=== PATIENT | female | born 1940 | race Caucasian/White ===

== ENCOUNTER 2018-06-02 10:15 | Inpatient (IN) ==
[2018-06-02] MEDS ORDERED: CEFTAROLINE 600 MG in SODIUM CHLORIDE 0.9% 100 ML IV STA (10:36)
[2018-06-02] MEDS ORDERED: SODIUM CHLORIDE 0.9% 1,000 ML IV STA (10:36)
[2018-06-02] MEDS ORDERED: ONDANSETRON 4 MG/2 ML VIAL IV STA (10:37)
[2018-06-02] MEDS ORDERED: fentaNYL 100 MCG/2 ML VIAL IV STA (10:37)
[2018-06-02 10:53] LABS: Basophils % 0.4 % (0.0-0.8); Hematocrit 44.2 VOL% (35.7-47.0); Hemoglobin 14.5 GM/DL (12.0-16.0); Immature Granulocytes % 0.5 %; Immature Granulocytes Absolute 0.05 #; Lymphocytes # 1.6 10*3/uL (1.4-4.0); Lymphocytes % 14.9 % (21.3-54.2); Mean Corpuscular HGB Conc 32.8 GM/DL (32-36); Mean Corpuscular Hemoglobin 31 PG (27-34); Mean Corpuscular Volume 95.1 FL (87-102); Mean Platelet Volume 10.1 FL (9.6-12.0); Monocytes # 0.8 10*3/uL (0.11-0.8); Monocytes % 7.4 % (1.7-12.7); Neutrophils # 8.4 10*3/uL (1.4-7.4); Neutrophils % 76.8 % (38.7-73.9); Platelet Count 172 T/CUMM (130-400); Red Blood Count 4.65 MC/CUMM (3.8-5.5); Red Cell Distribution Width 13.3 % (9.3-17.3); White Blood Count 10.9 T/CUMM (4-12)
[2018-06-02 11:00] LABS: INR 1.1; PT Patient Result 11.8 SECS; Partial Thromboplastin Time 23.3 SECS (0-40)
[2018-06-02] MEDS ORDERED: ALBUTEROL 2.5 MG/3 ML NEB RESP TX STA (11:04)
[2018-06-02 11:17] LABS: Hypochromasia 1+; Platelet Estimate Adequate
[2018-06-02 11:20] LABS: Albumin 2.5 G/DL (3.4-5.0); Calcium 8.2 MG/DL (8.5-10.1); Osmolality,Calculated 273.8 MOS/KG (273-304); Total Protein 7.3 G/DL (6.4-8.3)
[2018-06-02] MEDS ORDERED: POTASSIUM CHLORIDE 20 MEQ TABLET PO STA (11:39)
[2018-06-02] MEDS ORDERED: ONDANSETRON 4 MG/2 ML VIAL IV PRN (13:36)
[2018-06-02] MEDS ORDERED: ZALEPLON 5 MG CAPSULE PO PRN (13:36)
[2018-06-02] MEDS ORDERED: ACETAMINOPHEN 325 MG TABLET PO PRN (13:36)
[2018-06-02] MEDS ORDERED: DOCUSATE SODIUM 100 MG CAPSULE PO PRN (13:36)
[2018-06-02] MEDS ORDERED: ALBUTEROL/IPRATROPIUM 3 ML NEB RESP TX PRN (13:40)
[2018-06-02] MEDS ORDERED: clonazePAM 0.5 MG TABLET PO PRN (13:40)
[2018-06-02] MEDS ORDERED: NAPROXEN EC 375 MG TABLET PO PRN (13:40)
[2018-06-02] MEDS: traMADol 50 MG TABLET PO PRN (18:44)
[2018-06-02] MEDS: FLUTICASONE/SALMETEROL 250-50 DISKUS 14 DOSE INH SCH (21:14)
[2018-06-02] MEDS: PANTOPRAZOLE 40 MG TABLET PO SCH (21:14)
[2018-06-02] MEDS: CEFTAROLINE 600 MG in SODIUM CHLORIDE 0.9% 100 ML IV SCH (21:14)
[2018-06-02] MEDS: ENOXAPARIN 40 MG/0.4 ML SYRINGE SUBCUT SCH (21:14)
[2018-06-02] MEDS: MONTELUKAST 10 MG TABLET PO SCH (21:14)
[2018-06-02] MEDS: SIMVASTATIN 40 MG TABLET PO SCH (21:14)
[2018-06-02] MEDS: PREGABALIN 75 MG CAPSULE PO SCH (21:14)
[2018-06-03 00:08] LABS: Apearance,Urine Slightly Hazy (Clear); Bacteria,Urine Occasional /HPF (Few); Bilirubin,Urine Negative (Negative); Blood, Urine Negative (Negative); Glucose,Urine (UA) Negative (Negative); Ketones,Urine 20 mg/dL (Negative); Mucus,Urine Few /LPF (Occasional); Nitrite,Urine Negative (Negative); Protein,Urine Negative; RBC,Urine 1 /HPF (0-4); Squamous Epithelial Cell,Urine Occasional /HPF (0-10); Urine Color Amber (Yellow); Urine Specific Gravity 1.026 (1.001-1.035); WBC,Urine 7 /HPF (0-6)
[2018-06-03 05:13] LABS: Basophils % 0.2 % (0.0-0.8); Eosinophils % 0.4 % (0.00-10.9); Hematocrit 37.5 VOL% (35.7-47.0); Hemoglobin 11.8 GM/DL (12.0-16.0); Immature Granulocytes % 0.5 %; Immature Granulocytes Absolute 0.04 #; Lymphocytes # 1.7 10*3/uL (1.4-4.0); Lymphocytes % 20.6 % (21.3-54.2); Mean Corpuscular HGB Conc 31.5 GM/DL (32-36); Mean Corpuscular Hemoglobin 31 PG (27-34); Mean Corpuscular Volume 96.9 FL (87-102); Mean Platelet Volume 10.9 FL (9.6-12.0); Monocytes # 0.7 10*3/uL (0.11-0.8); Monocytes % 8.7 % (1.7-12.7); Neutrophils # 5.6 10*3/uL (1.4-7.4); Neutrophils % 69.6 % (38.7-73.9); Platelet Count 168 T/CUMM (130-400); Red Blood Count 3.87 MC/CUMM (3.8-5.5); Red Cell Distribution Width 13.3 % (9.3-17.3); White Blood Count 8.1 T/CUMM (4-12)
[2018-06-03 05:28] LABS: Calcium 7.5 MG/DL (8.5-10.1); Potassium 3.6 MMOL/L (3.5-5.1)
[2018-06-03] MEDS: IPRATROPIUM 500 MCG/2.5 ML NEB RESP TX SCH ×4 (07:07→19:07)
[2018-06-03] MEDS: RALOXIFENE 60 MG TABLET PO SCH (09:01)
[2018-06-03] MEDS: hydroCHLOROthiazide 12.5 MG CAPSULE PO SCH (09:01)
[2018-06-03] MEDS: CEFTAROLINE 600 MG in SODIUM CHLORIDE 0.9% 100 ML IV SCH ×2 (09:01→21:29)
[2018-06-03] MEDS: CLOPIDOGREL 75 MG TABLET PO SCH (09:01)
[2018-06-03] MEDS: ASPIRIN EC 81 MG TABLET PO SCH (09:01)
[2018-06-03] MEDS: PREGABALIN 75 MG CAPSULE PO SCH ×2 (09:01→21:28)
[2018-06-03] MEDS: FLUTICASONE/SALMETEROL 250-50 DISKUS 14 DOSE INH SCH ×2 (09:02→21:28)
[2018-06-03] MEDS: PANTOPRAZOLE 40 MG TABLET PO SCH ×2 (09:59→21:28)
[2018-06-03] MEDS ORDERED: MAGNESIUM SULF RIDER 4 GM in PREMIX 1 EACH IV PRN (10:33)
[2018-06-03] MEDS ORDERED: MAGNESIUM SULF RIDER 2 GM in PREMIX 1 EACH IV PRN (10:33)
[2018-06-03] MEDS ORDERED: LANOLIN 50% CREAM 0.3 OZ TUBE TOP PRN (10:38)
[2018-06-03] MEDS: MONTELUKAST 10 MG TABLET PO SCH (21:27)
[2018-06-03] MEDS: SIMVASTATIN 40 MG TABLET PO SCH (21:28)
[2018-06-03] MEDS: traMADol 50 MG TABLET PO PRN (21:28)
[2018-06-03] MEDS: ENOXAPARIN 40 MG/0.4 ML SYRINGE SUBCUT SCH (21:28)
[2018-06-04 06:19] LABS: Calcium 7.9 MG/DL (8.5-10.1); Osmolality,Calculated 274.7 MOS/KG (273-304)
[2018-06-04 08:08] LABS: Basophils % 0.4 % (0.0-0.8); Eosinophils # 0.1 10*3/uL (0.0-0.87); Eosinophils % 1.3 % (0.00-10.9); Hematocrit 39.1 VOL% (35.7-47.0); Hemoglobin 12.4 GM/DL (12.0-16.0); Immature Granulocytes % 0.6 %; Immature Granulocytes Absolute 0.04 #; Lymphocytes # 1.1 10*3/uL (1.4-4.0); Lymphocytes % 16.2 % (21.3-54.2); Mean Corpuscular HGB Conc 31.7 GM/DL (32-36); Mean Corpuscular Hemoglobin 31 PG (27-34); Mean Corpuscular Volume 96.1 FL (87-102); Mean Platelet Volume 9.9 FL (9.6-12.0); Monocytes # 0.4 10*3/uL (0.11-0.8); Monocytes % 6.3 % (1.7-12.7); Neutrophils # 5.1 10*3/uL (1.4-7.4); Neutrophils % 75.2 % (38.7-73.9); Platelet Count 189 T/CUMM (130-400); Red Blood Count 4.07 MC/CUMM (3.8-5.5); Red Cell Distribution Width 13.1 % (9.3-17.3); White Blood Count 6.8 T/CUMM (4-12)
[2018-06-04] MEDS: FLUTICASONE/SALMETEROL 250-50 DISKUS 14 DOSE INH SCH (08:25)
[2018-06-04] MEDS: ASPIRIN EC 81 MG TABLET PO SCH (08:25)
[2018-06-04] MEDS: RALOXIFENE 60 MG TABLET PO SCH (08:25)
[2018-06-04] MEDS ORDERED: MAGNESIUM SULF RIDER 2 GM in PREMIX 1 EACH IV ONE (08:25)
[2018-06-04] MEDS: CLOPIDOGREL 75 MG TABLET PO SCH (08:25)
[2018-06-04] MEDS: PANTOPRAZOLE 40 MG TABLET PO SCH (08:25)
[2018-06-04] MEDS: PREGABALIN 75 MG CAPSULE PO SCH (08:25)
[2018-06-04] MEDS: hydroCHLOROthiazide 12.5 MG CAPSULE PO SCH (08:25)
[2018-06-04] MEDS ORDERED: POTASSIUM CHLORIDE 20 MEQ/15 ML UDCUP PO ONE (08:26)
[2018-06-04] MEDS: IPRATROPIUM 500 MCG/2.5 ML NEB RESP TX SCH (08:47)
[2018-06-04] MEDS: CEFTAROLINE 600 MG in SODIUM CHLORIDE 0.9% 100 ML IV SCH (10:00)
[2018-06-04 11:02] VITALS: BP 116/70
== END 2018-06-04 12:00 | disposition home or self-care (01) | DRG 603 ==
LOC: EDUNIT# → N.ED 10:15 → N.EDINP 12:03 → SUATTDRO 12:03 → N.3E 16:58
PROVIDERS: ADMIT Hospitalist; ATTEND Internal Medicine

== ENCOUNTER 2018-06-09 17:35 | Observation (INO) ==
[2018-06-09 18:54] LABS: Basophils % 0.6 % (0.0-0.8); Eosinophils # 0.1 10*3/uL (0.0-0.87); Eosinophils % 1.3 % (0.00-10.9); Hematocrit 40.1 VOL% (35.7-47.0); Hemoglobin 12.9 GM/DL (12.0-16.0); Immature Granulocytes % 0.7 %; Immature Granulocytes Absolute 0.05 #; Lymphocytes # 2.1 10*3/uL (1.4-4.0); Lymphocytes % 29.3 % (21.3-54.2); Mean Corpuscular HGB Conc 32.2 GM/DL (32-36); Mean Corpuscular Hemoglobin 31 PG (27-34); Mean Corpuscular Volume 95.2 FL (87-102); Mean Platelet Volume 9.8 FL (9.6-12.0); Monocytes # 0.5 10*3/uL (0.11-0.8); Monocytes % 6.7 % (1.7-12.7); Neutrophils # 4.3 10*3/uL (1.4-7.4); Neutrophils % 61.4 % (38.7-73.9); Platelet Count 380 T/CUMM (130-400); Red Blood Count 4.21 MC/CUMM (3.8-5.5); Red Cell Distribution Width 13.2 % (9.3-17.3)
[2018-06-09 19:07] LABS: Alanine Aminotransferase 17 U/L (13-56); Albumin 2.4 G/DL (3.4-5.0); Alkaline Phosphatase 84 U/L (45-117); Aspartate Amino Transferase 17 U/L (0-37); Bilirubin,Total < 0.39 MG/DL (0.2-1.0); Blood Urea Nitrogen 16 MG/DL (7-18); Calcium 8.3 MG/DL (8.5-10.1); Glucose 134 MG/DL (74-106); Osmolality,Calculated 279.5 MOS/KG (273-304); Potassium 3.2 MMOL/L (3.5-5.1); Sodium 139 MMOL/L (136-145); Total Protein 6.8 G/DL (6.4-8.3)
[2018-06-09 19:11] LABS: Apearance,Urine CLEAR (Clear); Bilirubin,Urine Negative (Negative); Blood, Urine Negative (Negative); Glucose,Urine (UA) Negative (Negative); Ketones,Urine Negative (Negative); Nitrite,Urine Negative (Negative); Protein,Urine Negative; RBC,Urine <1 /HPF (0-4); Urine Color Yellow (Yellow); Urine Specific Gravity 1.019 (1.001-1.035); Urine Urobilinogen < 2.0 EU/DL (0.2-1.0); WBC,Urine 3 /HPF (0-6)
[2018-06-09 19:12] LABS: Hyaline Casts,Urine 3 /LPF (0-3); Mucus,Urine Occasional /LPF (Occasional); Squamous Epithelial Cell,Urine Occasional /HPF (0-10)
[2018-06-09] MEDS ORDERED: DOCUSATE SODIUM 100 MG CAPSULE PO PRN (20:38)
[2018-06-09] MEDS ORDERED: ACETAMINOPHEN 325 MG TABLET PO PRN (20:38)
[2018-06-09] MEDS ORDERED: ONDANSETRON 4 MG/2 ML VIAL IV PRN (20:38)
[2018-06-09] MEDS ORDERED: NAPROXEN EC 375 MG TABLET PO PRN (20:41)
[2018-06-09] MEDS ORDERED: traMADol 50 MG TABLET PO PRN (20:41)
[2018-06-09] MEDS ORDERED: MECLIZINE 25 MG TABLET PO PRN (20:41)
[2018-06-09] MEDS ORDERED: clonazePAM 0.5 MG TABLET PO PRN (20:41)
[2018-06-09] MEDS ORDERED: SIMVASTATIN 40 MG TABLET PO SCH (21:00)
[2018-06-09] MEDS ORDERED: ENOXAPARIN 40 MG/0.4 ML SYRINGE SUBCUT SCH (21:00)
[2018-06-09] MEDS ORDERED: MONTELUKAST 10 MG TABLET PO SCH (21:00)
[2018-06-09] MEDS ORDERED: NAPROXEN 250 MG TABLET PO PRN (22:30)
[2018-06-09] MEDS: PANTOPRAZOLE 40 MG TABLET PO SCH (23:23)
[2018-06-09] MEDS: PREGABALIN 75 MG CAPSULE PO SCH (23:23)
[2018-06-09] MEDS: FLUTICASONE/SALMETEROL 250-50 DISKUS 14 DOSE INH SCH (23:23)
[2018-06-10 06:08] LABS: Basophils # 0.1 10*3/uL (0.0-0.2); Basophils % 0.7 % (0.0-0.8); Eosinophils # 0.1 10*3/uL (0.0-0.87); Eosinophils % 1.5 % (0.00-10.9); Hemoglobin 12.3 GM/DL (12.0-16.0); Immature Granulocytes % 0.6 %; Immature Granulocytes Absolute 0.04 #; Lymphocytes # 2.3 10*3/uL (1.4-4.0); Lymphocytes % 33.8 % (21.3-54.2); Mean Corpuscular HGB Conc 31.5 GM/DL (32-36); Mean Corpuscular Hemoglobin 30 PG (27-34); Mean Corpuscular Volume 95.4 FL (87-102); Mean Platelet Volume 9.8 FL (9.6-12.0); Monocytes # 0.5 10*3/uL (0.11-0.8); Monocytes % 7.4 % (1.7-12.7); Neutrophils # 3.8 10*3/uL (1.4-7.4); Platelet Count 369 T/CUMM (130-400); Red Blood Count 4.09 MC/CUMM (3.8-5.5); Red Cell Distribution Width 13.1 % (9.3-17.3); White Blood Count 6.8 T/CUMM (4-12)
[2018-06-10 06:29] LABS: Calcium 8.3 MG/DL (8.5-10.1); Osmolality,Calculated 282.3 MOS/KG (273-304); Potassium 3.3 MMOL/L (3.5-5.1); VLDL CHOLESTEROL 40.2 MG/DL
[2018-06-10 06:30] LABS: Risk Ratio 4.44
[2018-06-10] MEDS: IPRATROPIUM 500 MCG/2.5 ML NEB RESP TX SCH ×3 (07:20→14:17)
[2018-06-10] MEDS ORDERED: hydroCHLOROthiazide 12.5 MG CAPSULE PO SCH (09:00)
[2018-06-10] MEDS ORDERED: RALOXIFENE 60 MG TABLET PO SCH (09:00)
[2018-06-10] MEDS ORDERED: ASPIRIN EC 81 MG TABLET PO SCH (09:00)
[2018-06-10] MEDS ORDERED: CLOPIDOGREL 75 MG TABLET PO SCH (09:00)
[2018-06-10] MEDS ORDERED: MAGNESIUM OXIDE 400 MG TABLET PO SCH (09:00)
[2018-06-10] MEDS ORDERED: POTASSIUM CHLORIDE 20 MEQ TABLET PO SCH (09:00)
[2018-06-10] MEDS ORDERED: ATORVASTATIN 40 MG TABLET PO SCH (09:00)
[2018-06-10] MEDS: PANTOPRAZOLE 40 MG TABLET PO SCH (11:06)
[2018-06-10] MEDS: PREGABALIN 75 MG CAPSULE PO SCH (11:07)
[2018-06-10] MEDS: cephALEXin 500 MG CAPSULE PO SCH ×3 (11:07→16:51)
[2018-06-10] MEDS: FLUTICASONE/SALMETEROL 250-50 DISKUS 14 DOSE INH SCH (11:09)
[2018-06-10 12:09] LABS: Troponin I < 0.015 NG/ML (0.00-0.045)
[2018-06-10] MEDS ORDERED: POTASSIUM CHLORIDE 20 MEQ/15 ML UDCUP PO ONE (12:30)
[2018-06-10 16:08] VITALS: BP 137/67
== END 2018-06-10 17:26 | disposition home or self-care (01) ==
LOC: EDUNIT# → EDBD → N.ED 17:35 → N.EDINP 17:35 → N.2E 21:19
PROVIDERS: ADMIT Internal Medicine; ATTEND Internal Medicine